=== PATIENT | female | born 1995 | race Caucasian/White ===

== ENCOUNTER 2019-09-28 13:47 | Emergency (ER) | payer OTHER ==
[2019-09-28 14:09] VITALS: BP 111/67
--- NOTE | 2019-09-28 14:56 | ER Document Report ---
ED General - General Chief Complaint: Cough Stated Complaint: COUGH,CONGESTION,FEVER,HEADACHE Notes: Patient is a 23-year-old female with no significant past medical history who presents to the emergency department with a chief complaint of cough, congestion. She states it began with some abdominal pain about 4 days ago. She states the pain was sharp in nature. [place] [facility] [place] COVID-[place]. She states they called her back and told her the swab was inadequate and needed to re-swab her on Sunday, 3 days ago. She states since that time abdominal pain has resolved. She is had no vomiting or diarrhea. She states it has progressed yesterday and to respiratory illness. She reports cough, congestion, slight sore throat and headaches. Denies any known fever, chills or night sweats. No chest pain or shortness of breath. No urinary complaints. No recent travel. She has been exposed to her daughter has been sick for a few weeks. Past Medical History - Social History Smoking Status: Unknown if Ever Smoked Family History: Reviewed & Not Pertinent Review of Systems - Review of Systems Constitutional: denies: Fever EENT: Nose congestion, Throat pain Cardiovascular: denies: Chest pain Respiratory: Cough Gastrointestinal: denies: Abdominal pain Genitourinary: denies: Burning Female Genitourinary: denies: Vaginal discharge Musculoskeletal: denies: Back pain Skin: denies: Rash Hematologic/Lymphatic: denies: Easy bleeding Neurological/Psychological: Headaches Physical Exam - Vital signs Vitals: Temp Pulse Resp BP Pulse Ox 98.3 F 101 H 16 111/67 98 09/28/19 13:55 09/28/19 13:55 09/28/19 13:55 09/28/19 13:55 09/28/19 13:55 - General General appearance: Appears well, Alert In distress: None - HEENT Head: Normocephalic, Atraumatic Eyes: Normal Conjunctiva: Normal Extraocular movements intact: Yes Eyelashes: Normal Pupils: PERRL Ears: Normal External canal: Normal Tympanic membrane: Normal Nasal: Normal Mouth/Lips: Normal Mucous membranes: Normal Pharynx: Other - Slightly injected posterior pharynx. No tonsillar hypertrophy or exudate. Uvula midline without edema or erythema. Airway patent. Patient handling secretions well. No sublingual or submental swelling. Neck: Normal, Supple. No: Lymphadenopathy - Respiratory Respiratory status: No respiratory distress Chest status: Nontender Breath sounds: Normal Chest palpation: Normal - Cardiovascular Rhythm: Regular Heart sounds: Normal auscultation - Neurological Neuro grossly intact: Yes Cognition: Normal Orientation: AAOx4 - Psychological Associated symptoms: Normal affect, Normal mood - Skin Skin Temperature: Warm Skin Moisture: Dry Skin Color: Normal Course - Re-evaluation Re-evalutation: 09/28/19 16:44 Rapid strep negative. Chest x-ray showing some likely infiltrate in the left lower lobe per radiologist. Consistent with patient's history, should be treated for pneumonia. Started on amoxicillin and Zithromax per up-to-date guidelines. She is still pending a COVID-19 swab as it is her [id number] and her daughter. They will continue to quarantine and self isolate as discussed until a negative result is achieved or until they receive further instruction with a positive result. Counseled her regarding the importance of outpatient follow-up in 2 to 3 days with her primary doctor and advised to return here or any ER immediately with any new, persistent or worsening symptoms. She verbalized understood and agreed. - Vital Signs Vital signs: Temp Pulse Resp BP Pulse Ox 98.3 F 101 H 16 111/67 98 09/28/19 13:55 09/28/19 13:55 09/28/19 13:55 09/28/19 13:55 09/28/19 13:55 Discharge - Discharge Clinical Impression: Person under investigation for COVID-19 Pneumonia Qualifiers: Pneumonia type: due to unspecified organism Laterality: left Lung location: lower lobe of lung Qualified Code(s): J18.9 - Pneumonia, unspecified organism Condition: Stable Disposition: HOME, SELF-CARE Instructions: Pneumonia (OM), COVID-19 Guidance for Persons Under Investigation Additional Instructions: Follow-up with your regular doctor in 2 to 3 days for reevaluation. Return here or any ER immediately with any new, persistent or worsening symptoms. Please continue to self isolating quarantine with the other members of your household until a negative result of COVID-19 is achieved or until further instruction is given by healthcare provider if your result is positive. Prescriptions: Amoxicillin Trihydrate [Amoxil 500 mg Capsule] 500 mg PO BID 7 Days #19 capsule Azithromycin [Zithromax 250 mg Tablet] 250 mg PO ASDIR PRN #4 tablet PRN Reason:
--- NOTE | 2019-09-28 15:48 | RADIOLOGY REPORT (SQ) ---
EXAM DESCRIPTION: CHEST SINGLE VIEW IMAGES COMPLETED DATE/TIME: 09/28/2019 3:31 pm REASON FOR STUDY: cough COMPARISON: None. EXAM PARAMETERS: NUMBER OF VIEWS: One view. TECHNIQUE: Single frontal radiographic view of the chest acquired. RADIATION DOSE: NA LIMITATIONS: None. FINDINGS: LUNGS AND PLEURA: Subtle hazy opacification partially obscures the left hemidiaphragm. Th e lungs are otherwise clear. No pleural effusion. No pneumothorax. MEDIASTINUM AND HILAR STRUCTURES: No masses. Contour normal. HEART AND VASCULAR STRUCTURES: Heart normal in size. Normal vasculature. BONES: No acute findings. HARDWARE: None in the chest. OTHER: No other significant finding. IMPRESSION: Subtle findings may represent a developing left lower lobe pneumonia. TECHNICAL DOCUMENTATION: JOB ID: [id number] 2010 [employer]- All Rights Reserved Reading location - IP/workstation name: [email or web address]
[2019-09-28] MEDS ORDERED: AZITHROMYCIN 250 MG TABLET PO ONE (16:32)
[2019-09-28] MEDS ORDERED: AMOXICILLIN TRIHYDRATE 500 MG CAPSULE PO ONE (16:32)
== END 2019-09-28 17:08 | disposition home or self-care (01) ==
LOC: ER 13:47
DX: J18.9 Pneumonia, unspecified organism (principal); R05 Cough; R09.81 Nasal congestion; R50.9 Fever, unspecified; R51 Headache; Z20.828 Contact with and (suspected) exposure to other viral communicable diseases
CPT/HCPCS: 71045; 87070; 87880; 99283

== ENCOUNTER 2020-01-23 14:41 | Emergency (ER) | payer OTHER ==
--- NOTE | 2020-01-23 15:11 | ER Document Report ---
ED Medical Screen (RME) - General Chief Complaint: Chest Pain Stated Complaint: CHEST PAIN Time Seen by Provider: 01/23/20 15:08 Mode of Arrival: Ambulatory Information source: Patient Notes: 24-year-old female presented to ED for complaint of chest pain last week and the day. She states she went to medical last weekend and they told her they did not know what was going on so when she had the chest pain again the day she went to medical and they just sent her away. She states last time she had this chest pain in the center where she came to the ER here and she was diagnosed with pneumonia. She just wants to know why her chest is hurting. She states it hurts to swallow and it hurts to breathe. She states she has not been tested for Covid recently. The patient was evaluated during the global Covid 19 pandemic, and that diagnosis was suspected/considered upon their initial presentation. Their evaluation, treatment and testing was consistent with current guidelines for patients who present with complaints or symptoms that may be related to Covid 19. I have greeted and performed a rapid initial assessment of this patient. A comprehensive ED assessment and evaluation of the patient, analysis of test results and completion of medical decision making process will be conducted by an additional ED providers. Past Medical History Psychiatric Medical History: Reports: Hx Depression Past Surgical History: Reports: Hx Appendectomy Physical Exam - Vital signs Vitals: Temp Pulse Resp BP Pulse Ox 98.4 F 81 16 103/62 99 01/23/20 14:55 01/23/20 14:55 01/23/20 14:55 01/23/20 14:55 01/23/20 14:55 Course - Vital Signs Vital signs: Temp Pulse Resp BP Pulse Ox 98.4 F 81 16 103/62 99 01/23/20 14:55 01/23/20 14:55 01/23/20 14:55 01/23/20 14:55 01/23/20 14:55
--- NOTE | 2020-01-23 16:32 | RADIOLOGY REPORT (SQ) ---
EXAM DESCRIPTION: CHEST SINGLE VIEW IMAGES COMPLETED DATE/TIME: 01/23/2020 4:16 pm REASON FOR STUDY: Hurts when she breathes hurts her chest when she s COMPARISON: None. EXAM PARAMETERS: NUMBER OF VIEWS: One view. TECHNIQUE: Single frontal radiographic view of the chest acquired. RADIATION DOSE: NA LIMITATIONS: None. FINDINGS: LUNGS AND PLEURA: No opacities, masses or pneumothorax. No pleural effusion. MEDIASTINUM AND HILAR STRUCTURES: No masses. Contour normal. HEART AND VASCULAR STRUCTURES: Heart normal in size. Normal vasculature. BONES: No acute findings. HARDWARE: None in the chest. OTHER: No other significant finding. IMPRESSION: NO ACUTE RADIOGRAPHIC FINDING IN THE CHEST. TECHNICAL DOCUMENTATION: JOB ID: [id number] 2010 [employer]- All Rights Reserved Reading location - IP/workstation name: [email or web address]
[2020-01-23] MEDS ORDERED: KETOROLAC TROMETHAMINE INJ/PF 30 MG/1 ML SDV IV ONE (17:11)
--- NOTE | 2020-01-23 17:42 | ER Document Report ---
ED Cardiac - General Chief Complaint: Chest Pain Stated Complaint: CHEST PAIN Time Seen by Provider: 01/23/20 15:08 Mode of Arrival: Ambulatory Notes: CHIEF COMPLAINT: Chest pain for 1week HPI: 24-year-old otherwise healthy female presenting for midsternal chest pain for 1 week. Patient states that she has not had trauma cough fever or recent illness. Denies Covid exposure. Denies abdominal pain but states that eating and drinking as well as deep breathing also make the pain worse. States that she was seen at 1 week ago had a chest x-ray, EKG and blood work and was discharged home with naproxen. Went back today because of her symptoms and was told that she could follow-up outpatient. Patient is not on control. ROS: See HPI - all other systems were reviewed and are otherwise negative Constitutional: no fever Eyes: no drainage, no blurred vision ENT: no runny nose, no sore throat Cardiovascular: + chest pain Resp: no SOB, no cough GI: no vomiting, no diarrhea, no abdominal pain : no dysuria Integumentary: no rash Allergy: no hives Musculoskeletal: no extremity pain or swelling Neurological: no numbness/tingling, no weakness MEDICATIONS: I agree with the patient medications as charted by the RN. ALLERGIES: I agree with the allergies as charted by the RN. PAST MEDICAL HISTORY/PAST SURGICAL HISTORY: Reviewed and agree as charted by RN. SOCIAL HISTORY: Reviewed and agree as charted by RN. FAMILY HISTORY: No significant familial comorbid conditions directly related to patient complaint EXAM: Reviewed vital signs as charted by RN. CONSTITUTIONAL: Alert and oriented and responds appropriately to questions. Well-appearing; well-nourished HEAD: Normocephalic; atraumatic EYES: PERRL; Conjunctivae clear, sclerae non-icteric ENT: normal nose; no rhinorrhea; moist mucous membranes; pharynx without lesions noted, no uvula edema or deviation, no tonsillar hypertrophy, phonation normal NECK: Supple without meningismus; non-tender; no cervical lymphadenopathy, no masses CARD: RRR; no murmurs, no clicks, no rubs, no gallops; symmetric distal pulses RESP: Normal chest excursion without splinting or tachypnea; breath sounds clear and equal bilaterally; no wheezes, no rhonchi, no rales, pulse oximetry 99% on room air not hypoxic. There is tenderness across the lower sternum on palpation ABD/GI: Normal bowel sounds; non-distended; soft, no reproducible pain in the epigastric or right upper quadrant region, no rebound, no guarding; no palpable organomegaly or masses. BACK: The back appears normal and is non-tender to palpation, there is no CVA tenderness EXT: Normal ROM in all joints; non-tender to palpation; no cyanosis, no effusions, no edema SKIN: Normal color for age and race; warm; dry; good turgor; no acute lesions noted NEURO: Moves all extremities equally; Motor and sensory function intact PSYCH: The patient's mood and manner are appropriate. Grooming and personal hygiene are appropriate. MDM: 24-year-old female with chest pain for a week that has been constant. Patient is otherwise very healthy, able to exert herself without any chest pain normally. Her pain is reproducible on palpation. She has no epigastric or abdominal pain on palpation. Differential is large, would include costochondritis, pleurisy, gastric ulcer. Low suspicion for Covid as she has not had recent illness. Patient states she had a full work-up a week ago, will obtain a D-dimer. EKG and chest x-ray ordered by triage process. Past Medical History - General Information source: Patient - Social History Smoking Status: Unknown if Ever Smoked Family History: Reviewed & Not Pertinent Psychiatric Medical History: Reports: Hx Depression Past Surgical History: Reports: Hx Appendectomy Physical Exam - Vital signs Vitals: Temp Pulse Resp BP Pulse Ox 98.4 F 81 16 103/62 99 01/23/20 14:55 01/23/20 14:55 01/23/20 14:55 01/23/20 14:55 01/23/20 14:55 Course - Re-evaluation Re-evalutation: 01/23/20 17:48 EKG normal sinus rhythm with a ventricular rate of 73. ME 168, QT 396, QTc 437. Borderline T wave flattening in V2 and V3. Borderline EKG. Interpreted by emergency department physician 01/23/20 18:56 Patient's D-dimer is negative, she is PERC negative. She is low risk for ACS. Her troponin is negative. Her white count is negative. Her pain is reproducible. May be a gastric ulcer, may be costochondritis. She states Toradol did not help but does not appear to be in any significant distress. W ill give GI cocktail to assess if it helps or not. Plan to discharge to follow- up both with cardiology and GI 01/23/20 19:22 Patient had complete relief with GI cocktail this is likely gastric in nature. Will now have her follow-up specifically with GI - Vital Signs Vital signs: Temp Pulse Resp BP Pulse Ox 98.4 F 81 16 103/62 99 01/23/20 14:55 01/23/20 14:55 01/23/20 14:55 01/23/20 14:55 01/23/20 14:55 - Laboratory Result Diagrams: 01/23/20 17:36 01/23/20 17:36 Laboratory results interpreted by me: 01/23/20 17:36 BUN 23 H Glucose 63 L Discharge - Discharge Clinical Impression: Epigastric abdominal pain Chest pain Qualifiers: Chest pain type: other chest pain Qualified Code(s): R07.89 - Other chest pain; R07.8 - Other chest pain Condition: Stable Disposition: HOME, SELF-CARE Additional Instructions: [place] diet. Take the Carafate as prescribed. Follow-up closely with gastroenterology for further evaluation and treatment call for appointment Prescriptions: Sucralfate [Carafate 1 gm Tablet] 1 gm PO ACHS #120 tablet Referrals: NOE PIMENTEL MD [ACTIVE STAFF] - Follow up as needed
[2020-01-23 18:17] LABS: ABSOLUTE EOSINOPHILS # (AUTO) 0.1 10^3/uL (0.0-0.6); ABSOLUTE LYMPHOCYTES (AUTO) 2.4 10^3/uL (0.5-4.7); ABSOLUTE MONOCYTES (AUTO) 0.5 10^3/uL (0.1-1.4); ABSOLUTE NEUT (AUTO) 2.9 10^3/uL (1.7-8.2); BASOPHILS % (AUTO) 0.7 % (0-2); EOSINOPHILS % (AUTO) 1.7 % (0-6); HEMATOCRIT 40.1 % (36.0-47.0); HEMOGLOBIN 13.8 g/dL (12.0-15.5); LYMPHOCYTES % (AUTO) 40.6 % (13-45); MEAN CORPUSCULAR HGB CONC 34.4 g/dL (32.0-36.0); MEAN CORPUSCULAR VOLUME 87 fl (80-97); MONOCYTES % (AUTO) 8.9 % (3-13); PLATELET COUNT 249 10^3/uL (150-450); RED BLOOD COUNT 4.61 10^6/uL (3.72-5.28); RED CELL DISTRIBUTION WIDTH 13.6 % (11.5-14.0); SEGMENTED NEUTROPHILS % (AUTO) 48.1 % (42-78); TOTAL CELLS COUNTED % (AUTO) 100 %
[2020-01-23 18:41] LABS: ALBUMIN 4.1 g/dL (3.5-5.0); ALKALINE PHOSPHATASE 49 U/L (38-126); ANION GAP 9 (5-19); ASPARTATE AMINO TRANSFERASE 20 U/L (14-36); BILIRUBIN,TOTAL 0.4 mg/dL (0.2-1.3); BLOOD UREA NITROGEN 23 mg/dL (7-20); CALCIUM 9.5 mg/dL (8.4-10.2); CARBON DIOXIDE 28 mmol/L (22-30); CHLORIDE 102 mmol/L (98-107); TOTAL PROTEIN 6.6 g/dL (6.3-8.2)
[2020-01-23] MEDS ORDERED: LIDOCAINE 2% VISCOUS SOLN 15 ML UDCUP PO ONE (18:56)
[2020-01-23] MEDS ORDERED: MAG HYDROX/AL HYDROX/SIMETH SUSP 30 ML UDCUP PO ONE (18:56)
[2020-01-23 19:02] LABS: GLUCOSE 63 mg/dL (75-110)
[2020-01-23 19:42] VITALS: BP 112/72
--- NOTE | 2020-01-25 18:06 | EKG REPORT ---
SEVERITY:- BORDERLINE ECG - SINUS RHYTHM BORDERLINE T ABNORMALITIES, ANTERIOR LEADS : Confirmed by: Sajan Jacobs MD 25-Jan-2020 18:05:40
== END 2020-01-23 19:43 | disposition home or self-care (01) ==
LOC: ER 14:41
DX: R07.1 Chest pain on breathing (principal); R10.13 Epigastric pain; Z90.49 Acquired absence of other specified parts of digestive tract
CPT/HCPCS: 93005; 99285; 96374; 36415; 84703; 85025; 80053; 84484; 85379; 71045; 93010; J3490; J1885

== ENCOUNTER 2020-04-02 23:25 | Emergency (ER) | payer OTHER ==
--- NOTE | 2020-04-03 00:41 | ER Document Report ---
ED Medical Screen (RME) - General Chief Complaint: Lower Abdominal Pain Stated Complaint: LOWER ABDOMINAL PAIN Time Seen by Provider: 04/03/20 00:33 Mode of Arrival: Ambulatory Information source: Patient - HPI Patient complains to provider of: vaginal pain Notes: 04/03/20 00:41 Patient with complaints of pain in her vaginal area. She states is been going on for the last few days. [place] have a urinary tract infection and was started on Macrobid and Pyridium without any relief. She states she continues to have a lot of pain in her vaginal area with walking and sitting. No fevers. No nausea, vomiting, diarrhea. Exam: Nontoxic, no distress. Lungs clear throughout. Heart sounds normal. No focal abdominal tenderness on limited triage abdominal exam. Unable to perform exam in triage. An initial examination was made on the patient as part of the triage process, and it was determined a more comprehensive evaluation was necessary. Initial orders were placed and patient was transferred to another provider in the ED who assumed care and finished evaluation and plan. Past Medical History Psychiatric Medical History: Reports: Hx Depression Past Surgical History: Reports: Hx Appendectomy Physical Exam - Vital signs Vitals: Temp Pulse Resp BP Pulse Ox 98 F 90 15 112/66 97 04/02/20 23:50 04/02/20 23:50 04/02/20 23:50 04/02/20 23:50 04/02/20 23:50 Course - Vital Signs Vital signs: Temp Pulse Resp BP Pulse Ox 98 F 90 15 112/66 97 04/02/20 23:50 04/02/20 23:50 04/02/20 23:50 04/02/20 23:50 04/02/20 23:50
[2020-04-03 03:07] LABS: APPEARANCE,URINE CLEAR; BILIRUBIN,URINE NEGATIVE (NEGATIVE); COLOR,URINE AMBER; GLUCOSE, URINE 50 mg/dL (NEGATIVE); KETONES,URINE NEGATIVE (NEGATIVE); LEUKOCYTE ESTERASE,URINE SMALL (NEGATIVE); NITRITE,URINE POSITIVE (NEGATIVE); PROTEIN,URINE NEGATIVE (NEGATIVE); URINE SPECIFIC GRAVITY 1.003
[2020-04-03 03:12] LABS: BACTERIA (WET MOUNT) 4+ BACTERIA SEEN; EPITHELIALS (WET MOUNT) 4+ EPITHELIALS SEEN; RBCS (WET MOUNT) NO RBCS SEEN; T.VAGINALIS (WET MOUNT) NO TRICHOMONAS SEEN; WBCS (WET MOUNT) 3+ WBCS SEEN; YEAST (WET MOUNT) NO YEAST SEEN
[2020-04-03] MEDS ORDERED: LIDOCAINE 1% INJ-PF (10 MG/ML) 30 ML SDV INJ ONE (03:41)
[2020-04-03] MEDS ORDERED: CEFTRIAXONE INJ 250 MG VIAL IM ONE (03:41)
[2020-04-03] MEDS ORDERED: AZITHROMYCIN 250 MG TABLET PO ONE (03:41)
[2020-04-03] MEDS ORDERED: PROMETHAZINE HCL 25 MG TABLET PO ONE (03:42)
[2020-04-03] MEDS ORDERED: OXYCODONE-ACETAMINOPHEN 5-325 MG TABLET PO ONE (03:42)
--- NOTE | 2020-04-03 03:50 | ER Document Report ---
ED GI/ - General Chief Complaint: Lower Abdominal Pain Stated Complaint: LOWER ABDOMINAL PAIN Time Seen by Provider: 04/03/20 00:33 Mode of Arrival: Ambulatory Notes: Patient is a 24-year-old female that comes emergency department for chief complaint of vaginal pain, irritation, discharge. She states this has been going on for several days. Patient was seen at [facility], she states she was told she might have a urinary tract infection in the urine was sent for culture, she was started on Macrobid and Pyridium. She states she has been taking this for a day or so and has had no change in symptoms. She does report some dysuria, denies flank pain, abdominal pain, nausea/vomiting, fever/chills. Her significant other is at bedside. - Related Data Allergies/Adverse Reactions: No Known Allergies Allergy (Unverified 04/03/20 04:21) Past Medical History - General Information source: Patient - Social History Smoking Status: Never Smoker Frequency of alcohol use: None Drug Abuse: None Lives with: Family Family History: Reviewed & Not Pertinent Psychiatric Medical History: Reports: Hx Depression Past Surgical History: Reports: Hx Appendectomy - Immunizations Immunizations up to date: Yes Hx Diphtheria, Pertussis, Tetanus Vaccination: Yes Review of Systems - Review of Systems Constitutional: No symptoms reported EENT: No symptoms reported Cardiovascular: No symptoms reported Respiratory: No symptoms reported Gastrointestinal: See HPI Genitourinary: See HPI Female Genitourinary: See HPI Musculoskeletal: No symptoms reported Skin: No symptoms reported Hematologic/Lymphatic: No symptoms reported Neurological/Psychological: No symptoms reported Physical Exam - Vital signs Vitals: Temp Pulse Resp BP Pulse Ox 98 F 90 15 112/66 97 04/02/20 23:50 04/02/20 23:50 04/02/20 23:50 04/02/20 23:50 04/02/20 23:50 - Notes Notes: GENERAL: Alert, interacts well. No acute distress. HEAD: Normocephalic, atraumatic. EYES: Pupils equal, round, and reactive to light. Extraocular movements intact. ENT: Oral mucosa moist, tongue midline. Oropharynx unremarkable. Airway patent. NECK: Full range of motion. Supple. Trachea midline. No lymphadenopathy. LUNGS: Clear to auscultation bilaterally, no wheezes, rales, or rhonchi. No respiratory distress. Non-tender chest wall. HEART: Regular rate and rhythm. No murmur ABDOMEN: Soft, non-tender. Non-distended. Bowel sounds present in all 4 quadran ts. GENITOURINARY: Deferred EXTREMITIES: Moves all 4 extremities spontaneously. No edema, normal radial and dorsalis pedis pulses bilaterally. No cyanosis. BACK: no cervical, thoracic, lumbar midline tenderness. No saddle anesthesia, normal distal neurovascular exam. Moves all extremities in full range of motion. NEUROLOGICAL: Alert and oriented x3. Normal speech. Cranial nerves II through XII grossly intact. Strength 5/5 in all extremities. PSYCH: Normal affect, normal mood. SKIN: Warm, dry, normal turgor. No rashes or lesions noted. Course - Re-evaluation Re-evalutation: Urinalysis shows positive nitrites but I suspect this is a false positive because patient has been taking Pyridium. Urinalysis otherwise unremarkable. Urine test negative. 3+ white blood cells on self swab, nonspecific otherwise, however patient has reportedly large amount of vaginal discharge, vaginal pain. However she does not have any tenderness on abdominal exam. She is very alert and well-appearing. Vital signs unremarkable. Offered pelvic exam for more specific results, this was declined, patient is requesting to be medicated and discharged. I do suspect patient has symptoms secondary to a pelvic infection, patient medicated for this, discussed follow-up and return precautions. Patient states understanding and agreement. - Vital Signs Vital signs: Temp Pulse Resp BP Pulse Ox 97.7 F 88 16 104/62 96 04/03/20 04:20 04/03/20 04:20 04/03/20 04:20 04/03/20 04:20 04/03/20 04:20 - Laboratory Results Laboratory Results Interpreted: 04/02/20 23:29 Urine Glucose (UA) 50 H Urine Nitrite POSITIVE H Urine Urobilinogen 2.0 H Ur Leukocyte Esterase SMALL H Critical Laboratory Results Reviewed: No Critical Results - Radiology Results Critical Radiology Results Reviewed: No Critical Results Discharge - Discharge Clinical Impression: Lower abdominal pain, Vaginal discharge Condition: Stable Disposition: HOME, SELF-CARE Additional Instructions: Based on your evaluation, symptoms, and work-up I believe you have a pelvic infection. You have begun treatment for this, please complete treatment by taking the Flagyl at home as prescribed. You can take Toradol if needed for pain. You were given a dose of Percocet tonight in the emergency department. Avoid sexual intercourse for 1 week. You will be contacted for any concerning results of the remaining tests. Follow-up with primary care. Return the emergency department for any concerning symptoms including developing abdominal pain, vomiting, fever, or any other concerning or worsening symptoms. Prescriptions: Ketorolac Tromethamine [Toradol 10 mg Tablet] 10 mg PO Q8HP PRN #24 tablet PRN Reason: Metronidazole [Flagyl 500 mg Tablet] 500 mg PO TID 7 Days #21 tablet
[2020-04-03 04:20] VITALS: BP 104/62
[2020-04-03 04:43] LABS: CHLAM PCR NOT DETECTED (NOT DETECT)
== END 2020-04-03 04:40 | disposition home or self-care (01) ==
LOC: ER 23:25
DX: N89.8 Other specified noninflammatory disorders of vagina (principal); R10.30 Lower abdominal pain, unspecified; R10.2 Pelvic and perineal pain
CPT/HCPCS: 99284; 96372; 87210; 81025; 81001; 87491; 87591; J3490; J0696

== ENCOUNTER 2020-04-13 17:33 | Emergency (ER) | payer OTHER ==
--- NOTE | 2020-04-13 17:55 | ER Document Report ---
ED Medical Screen (RME) - General Stated Complaint: VAGINAL ITCHING/BURNING Time Seen by Provider: 04/13/20 17:51 Mode of Arrival: Ambulatory Information source: Patient Notes: HPI; 24-year-old female presents to the emergency room complaining of persistent vaginal discharge, dysuria, for the past 2 weeks. States she was seen here on April 02 was diagnosed with UTI and BV states is taking the medication but symptoms are persistent. She is now having lower pelvic pain which she describes as cramping. No nausea, no vomiting. Unable to see primary care physician. Denies any change in sexual partners. No other medications for symptoms. PE: Alert and oriented x3. Lungs: Clear to auscultation without rales, rhonchi, wheezes. Heart: Regular rate rhythm without murmurs, rubs, gallops. I have greeted and performed a rapid initial assessment of this patient. A comprehensive ED assessment and evaluation of the patient, analysis of test results and completion of the medical decision making process will be conducted by additional ED providers. I have specifically instructed the patient or family members with the patient to immediately return to any nursing staff should anything change in the patient's condition or with their chief complaint. TRAVEL OUTSIDE OF THE [place] IN LAST 30 DAYS: No - Related Data Allergies/Adverse Reactions: No Known Allergies Allergy (Unverified 04/03/20 04:21) Past Medical History Psychiatric Medical History: Reports: Hx Depression Past Surgical History: Reports: Hx Appendectomy - Immunizations Immunizations up to date: Yes Hx Diphtheria, Pertussis, Tetanus Vaccination: Yes Physical Exam - Vital signs Vitals: Temp Pulse BP Pulse Ox 98.6 F 70 119/62 98 04/13/20 17:45 04/13/20 17:45 04/13/20 17:45 04/13/20 17:45 Course - Vital Signs Vital signs: Temp Pulse Resp BP Pulse Ox 98.6 F 70 119/62 98 04/13/20 17:45 04/13/20 17:45 04/13/20 17:45 04/13/20 17:45
[2020-04-13 18:46] LABS: ABSOLUTE EOSINOPHILS # (AUTO) 0.1 10^3/uL (0.0-0.6); ABSOLUTE LYMPHOCYTES (AUTO) 1.5 10^3/uL (0.5-4.7); ABSOLUTE MONOCYTES (AUTO) 0.4 10^3/uL (0.1-1.4); ABSOLUTE NEUT (AUTO) 5.2 10^3/uL (1.7-8.2); BASOPHILS % (AUTO) 0.6 % (0-2); EOSINOPHILS % (AUTO) 1.2 % (0-6); HEMATOCRIT 39.7 % (36.0-47.0); HEMOGLOBIN 13.1 g/dL (12.0-15.5); LYMPHOCYTES % (AUTO) 20.3 % (13-45); MEAN CORPUSCULAR HEMOGLOBIN 28.7 pg (27.0-33.4); MEAN CORPUSCULAR VOLUME 87 fl (80-97); MONOCYTES % (AUTO) 5.9 % (3-13); PLATELET COUNT 257 10^3/uL (150-450); RED BLOOD COUNT 4.57 10^6/uL (3.72-5.28); RED CELL DISTRIBUTION WIDTH 13.3 % (11.5-14.0); TOTAL CELLS COUNTED % (AUTO) 100 %; WHITE BLOOD COUNT 7.2 10^3/uL (4.0-10.5)
[2020-04-13 19:02] LABS: ALBUMIN 3.8 g/dL (3.5-5.0); ALKALINE PHOSPHATASE 55 U/L (38-126); ANION GAP 7 (5-19); ASPARTATE AMINO TRANSFERASE 26 U/L (14-36); BILIRUBIN,DIRECT 0.1 mg/dL (0.0-0.4); BILIRUBIN,TOTAL 0.4 mg/dL (0.2-1.3); BLOOD UREA NITROGEN 31 mg/dL (7-20); CARBON DIOXIDE 23 mmol/L (22-30); CHLORIDE 106 mmol/L (98-107); GLUCOSE 85 mg/dL (75-110); POTASSIUM 4.2 mmol/L (3.6-5.0); TOTAL PROTEIN 6.4 g/dL (6.3-8.2)
[2020-04-13 19:24] LABS: APPEARANCE,URINE CLEAR; BILIRUBIN,URINE NEGATIVE (NEGATIVE); COLOR,URINE YELLOW; GLUCOSE, URINE NEGATIVE (NEGATIVE); KETONES,URINE NEGATIVE (NEGATIVE); LEUKOCYTE ESTERASE,URINE LARGE (NEGATIVE); NITRITE,URINE NEGATIVE (NEGATIVE); PROTEIN,URINE NEGATIVE (NEGATIVE); URINE SPECIFIC GRAVITY 1.028; UROBILINOGEN,URINE NEGATIVE mg/dL (<2.0)
--- NOTE | 2020-04-13 19:36 | RADIOLOGY REPORT (SQ) ---
EXAM DESCRIPTION: U/S NON OB PEL TV W/DOPPLER IMAGES COMPLETED DATE/TIME: 04/13/2020 7:19 pm REASON FOR STUDY: pain COMPARISON: None. TECHNIQUE: Dynamic and static grayscale images acquired of the pelvis via transvaginal approach and recorded on PACS. Additional selected color Doppler and spectral images recorded. LIMITATIONS: None. FINDINGS: UTERUS: Retroverted uterus. No masses. ENDOMETRIAL STRIPE: No focal or generalized thickening. No masses. CERVIX: 1.7 cm. No nabothian cysts. RIGHT OVARY AND DOPPLER: Normal size. No worrisome masses. Normal arterial vascular flow without evid ence for torsion. LEFT OVARY AND DOPPLER: Normal size. No worrisome masses. Normal arterial vascular flow without evide nce for torsion. FREE FLUID: None noted. OTHER: No other significant finding. MEASUREMENTS: UTERUS: 6.8 x 5.3 x 4.2 cm. ENDOMETRIAL STRIPE: 4 mm. RIGHT OVARY: 2.9 x 2 x 1.7 cm. LEFT OVARY: 2.9 x 1.2 x 1.4 cm. IMPRESSION: NORMAL TRANSVAGINAL PELVIC ULTRASOUND. TECHNICAL DOCUMENTATION: JOB ID: [id number] 2010 [employer]- All Rights Reserved Rev-08/03 Reading location - IP/workstation name: [email or web address]
--- NOTE | 2020-04-13 20:48 | ER Document Report ---
ED GI/ - General Stated Complaint: VAGINAL ITCHING/BURNING Time Seen by Provider: 04/13/20 17:51 Primary Care Provider: VERONICA SALCIDO MD [ACTIVE STAFF] - Follow up as needed Mode of Arrival: Ambulatory Notes: 24-year-old female presents to the emergency room complaining of persistent vaginal discharge, dysuria, for the past 2 weeks. States she was seen here on April 02 was diagnosed with UTI and BV states is taking the medication but symptoms are persistent. She is now having lower pelvic pain which she charmaine cribes as cramping. No nausea, no vomiting. Unable to see primary care physician. Denies any change in sexual partners. No other medications for symptoms. TRAVEL OUTSIDE OF THE [place] IN LAST 30 DAYS: No - Related Data Allergies/Adverse Reactions: No Known Allergies Allergy (Verified 04/13/20 22:30) Past Medical History - General Information source: Patient - Social History Smoking Status: Never Smoker Frequency of alcohol use: None Drug Abuse: None Family History: Reviewed & Not Pertinent Psychiatric Medical History: Reports: Hx Depression Past Surgical History: Reports: Hx Appendectomy - Immunizations Immunizations up to date: Yes Hx Diphtheria, Pertussis, Tetanus Vaccination: Yes Review of Systems - Review of Systems Gastrointestinal: Nausea Female Genitourinary: Vaginal discharge -: Yes All other systems reviewed and negative Physical Exam - Vital signs Vitals: Temp Pulse BP Pulse Ox 98.6 F 70 119/62 98 04/13/20 17:45 04/13/20 17:45 04/13/20 17:45 04/13/20 17:45 - Notes Notes: PHYSICAL EXAMINATION: GENERAL: Well-appearing, well-nourished and in no acute distress. HEAD: Atraumatic, normocephalic. EYES: Pupils equal round and reactive to light, extraocular movements intact, conjunctiva are normal. ENT: Nares patent, oropharynx clear without exudates. Moist mucous membranes. NECK: Normal range of motion, supple without lymphadenopathy LUNGS: Breath sounds clear to auscultation bilaterally and equal. No wheezes rales or rhonchi. HEART: Regular rate and rhythm without murmurs ABDOMEN: Soft, nontender, nondistended abdomen. No guarding, no rebound. No masses appreciated. Female : Normal external genitalia, yellowish discharge pouring from the cervix, cervix appears friable, cervical motion tenderness noted. Musculoskeletal: Normal range of motion, no pitting or edema. No cyanosis. NEUROLOGICAL: Cranial nerves grossly intact. Normal speech, normal gait. Normal sensory, motor exams PSYCH: Normal mood, normal affect. SKIN: Warm, Dry, normal turgor, no rashes or lesions noted. Course - Re-evaluation Re-evalutation: Patient's work-up and exam consistent with pelvic inflammatory disease. Patient will be started on medications for this. Strict ED return precautions discussed, medication compliance discussed. The patient's emergency department workup and current diagnosis were explained to the patient and or family. Follow-up instructions were provided. Me dications if prescribed were discussed. Instructions for when to return to the emergency department including specific worrisome symptoms were discussed with the patient and/or family. - Vital Signs Vital signs: Temp Pulse Resp BP Pulse Ox 97.9 F 85 16 116/63 98 04/13/20 22:02 04/13/20 22:02 04/13/20 22:02 04/13/20 22:02 04/13/20 22:02 - Laboratory Results Result Diagrams: 04/13/20 18:35 04/13/20 18:35 Laboratory Results Interpreted: 04/13/20 04/13/20 18:35 18:35 Sodium 136.0 L BUN 31 H Ur Leukocyte Esterase LARGE H Critical Laboratory Results Reviewed: No Critical Results - Radiology Results Critical Radiology Results Reviewed: No Critical Results Discharge - Discharge Clinical Impression: PID (pelvic inflammatory disease), Yeast infection Condition: Stable Disposition: HOME, SELF-CARE Additional Instructions: Pelvic Inflammatory Disease You have been diagnosed as having pelvic inflammatory disease (PID). This is an infection of the fallopian tubes and surrounding areas of the pelvis. Symptoms are usually pelvic pain and discharge. The infection can do permanent damage to the tubes and ovaries. It should be taken very seriously. Treatment is antibiotics, which may be given by vein or by injection if the infection seems serious. It's important that you receive all recommended medication. Condoms help prevent spread of this infection to others. Call the doctor or return at once if you develop increasing fever, rash, severe pelvic pain, vaginal bleeding (other than your period), or problems with your bladder or bowels. Prescriptions: Metronidazole [Flagyl 500 mg Tablet] 500 mg PO Q12H #28 tablet Doxycycline Hyclate [Vibramycin 100 mg Tablet] 100 mg PO BID #28 tablet Ondansetron [Zofran Odt 4 mg Tablet] 1 - 2 tab PO Q4H PRN #15 tab.rapdis PRN Reason: For Nausea/Vomiting Referrals: VERONICA SALCIDO MD [ACTIVE STAFF] - Follow up as needed
[2020-04-13 21:13] LABS: BACTERIA (WET MOUNT) 4+ BACTERIA SEEN; EPITHELIALS (WET MOUNT) 3+ EPITHELIALS SEEN; T.VAGINALIS (WET MOUNT) NO TRICHOMONAS SEEN; WBCS (WET MOUNT) 4+ WBCS SEEN; YEAST (WET MOUNT) BUDDING YEAST SEEN
[2020-04-13] MEDS ORDERED: DOXYCYCLINE HYCLATE 100 MG TABLET PO ONE (21:35)
[2020-04-13] MEDS ORDERED: METRONIDAZOLE 500 MG TABLET PO ONE (21:35)
[2020-04-13] MEDS ORDERED: FLUCONAZOLE 100 MG TABLET PO ONE (21:35)
[2020-04-13 22:12] VITALS: BP 116/63
[2020-04-13 22:32] LABS: CHLAM PCR NOT DETECTED (NOT DETECT)
== END 2020-04-13 22:37 | disposition home or self-care (01) ==
LOC: ER 17:33
DX: N73.9 Female pelvic inflammatory disease, unspecified (principal); B37.3 Candidiasis of vulva and vagina; L29.2 Pruritus vulvae; R30.0 Dysuria
CPT/HCPCS: 36415; 76830; 80053; 81001; 84703; 85025; 87086; 87088; 87210; 87491; 87591; 93976; 99284